=== PATIENT | female | born 1970 | race African-American/Black ===

== ENCOUNTER 2018-02-18 23:31 | Emergency (ER) | payer OTHER ==
[~2018-02-18] VITALS: Ht 165.1 cm; Wt 104.3 kg
[2018-02-18] MEDS ORDERED: NITROSTAT SL ONE (23:43)
[2018-02-18] MEDS ORDERED: TORADOL IV STA (23:45)
[2018-02-18 23:48] VITALS: BP 140/83
[2018-02-19] MEDS ORDERED: NITROSTAT SL PRN
[2018-02-19] MEDS ORDERED: TORADOL ONE (00:01)
--- NOTE | 2018-02-19 00:08 | NUR ---
LAB LAB AT BEDSIDE AT THIS TIME.
--- NOTE | 2018-02-19 00:08 | NUR ---
RAD BEN, RAD WAITING AT BEDSIDE WITH PORTABLE FOR CHEST XRAY.
--- NOTE | 2018-02-19 00:21 | NUR ---
UPDATE PT'S AT BEDSIDE NOW. PT RELAXING IN BED VISITING WITH .
--- NOTE | 2018-02-19 00:22 | DIREP ---
PROCEDURE:CHEST 1 VIEW COMPARISON:None. INDICATIONS:Chest pain FINDINGS: LUNGS/PLEURA:No significant pulmonary parenchymal abnormalities. No effusions. VASCULATURE:Normal. Unremarkable pulmonary vasculature. CARDIAC:Normal. No cardiac silhouette abnormality or cardiomegaly. MEDIASTINUM:Normal. No visible mass or adenopathy. BONES:Normal. No fracture or visible bony lesion. OTHER:EKG leads overlie the chest. CONCLUSION:No acute cardiopulmonary abnormalities. Dictated by: Matthew Tadeo M.D. on 02/19/2018 at 00:20 AM
[2018-02-19 00:28] LABS: BASOPHIL # 0.1 10^3/uL (0.0-0.1); BASOPHIL % 0.6 % (0.0-0.2); EOSINOPHIL # 0.2 10^3/uL (0.0-0.2); EOSINOPHIL % 2.8 % (0.0-5.0); HEMOGLOBIN 10.8 g/dL (12.0-15.0); LYMPHOCYTES % 37.1 % (24.0-44.0); MEAN CELL HGB 26.9 pg (26-34); MEAN CELL HGB CONCENTRATION 31.9 g/dL (33-37); MEAN CORP VOLUME 84.5 fL (78-100); MEAN PLATELET VOLUME 11.1 fL (7.8-11.0); MONOCYTES # 0.6 10^3/uL (0.3-0.8); MONOCYTES % 7.4 % (5.0-12.0); NEUTROPHIL # 4.2 10^3/uL (1.8-7.7); NEUTROPHILS % 52.1 % (41.0-85.0); RED CELL DISTRIBUTION WIDTH 14.4 % (11.5-14.5); WHITE BLOOD CELL 8.1 10^3/uL (4.5-11.0)
[2018-02-19 00:39] LABS: ALANINE AMINOTRANSFERASE(ML) 18 U/L (12-78); ALKALINE PHOSPHATASE 50 U/L (50-136); ASPARTATE AMINO TRANSFERASE 33 U/L (0-35); CALCIUM 8.3 mg/dL (8.4-10.5); CARBON DIOXIDE 29.2 mmol/L (20.0-32); GLUCOSE 95 mg/dL (70-110)
--- NOTE | 2018-02-19 00:47 | PCM.EKG ---
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
--- NOTE | 2018-02-19 00:53 | ER.PDOC ---
General Chief Complaint: Chest Pain-Cardiac Nature Stated Complaint: CHEST PAIN Time seen by MD: 23:55 Source: patient, EMS Exam Limitations: no limitations History of Present Illness Initial Comments Had CP on Wednesday, today repeated again while driving with . Gets worse with deep breath Timing/Duration: 1-3 hours Severity/Quality: severe Radiation: arms (left) Activities at Onset: none Nitro Today/Relief: 0.4 mg x 3 Aspirin Today: 325 mg x 1 Associated Symptoms: denies symptoms Allergies: Coded Allergies: morphine (Unverified Allergy, Unknown, SWELLING, WELTS, 02/18/18) Past Medical History Medical History: cardiac problems, high cholesterol, hypertension Surgical History: tubal LMP (females 10-50): this week Social History Smoking: non-smoker Alcohol Use: none Drug Use: none Constitutional: no symptoms reported EENTM: no symptoms reported Respiratory: see HPI Cardiovascular: see HPI Gastrointestinal: no symptoms reported Genitourinary: no symptoms reported Musculoskeletal: no symptoms reported Skin: no symptoms reported Psychiatric/Neurological: no symptoms reported Endocrine: no symptoms reported Hematologic/Lymphatic: no symptoms reported Physical Exam General Appearance: No Apparent Distress, WD/WN HEENT: PERRL/EOMI, Normal ENT Inspection, TMs Normal, Pharynx Normal Neck: Non-Tender, Full Range of Motion, Supple, Normal Inspection Respiratory: lungs clear, normal breath sounds, no respiratory distress, no accessory muscle use Cardiovascular: Normal Peripheral Pulses, Regular Rate, Rhythm, No Edema, No Gallop, No JVD, No Murmur Gastrointestinal: Normal Bowel Sounds, No Organomegaly, No Pulsatile Mass, Non Tender, Soft Extremities: Normal Range of Motion, Non-Tender, Normal Inspection, No Pedal Edema, No Calf Tenderness, Normal Capillary Refill 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, No Motor/Sensory Deficits, Alert, Normal Mood/Affect, Oriented x 3 Skin: Normal Color, Warm/Dry Lymphatic: No Adenopathy Results/Orders Results/Orders Laboratory Tests Test 02/18/18 23:45 White Blood Count 8.1 10^3/uL (4.5-11.0) Red Blood Count 4.01 10^6/uL (4.00-5.20) Hemoglobin 10.8 g/dL (12.0-15.0) Hematocrit 33.9 % (36.0-46.0) Mean Corpuscular Volume 84.5 fL (78-100) Mean Corpuscular Hemoglobin 26.9 pg (26-34) Mean Corpuscular Hemoglobin Concent 31.9 g/dL (33-37) Red Cell Distribution Width 14.4 % (11.5-14.5) Platelet Count 217 10^3/uL (150-400) Mean Platelet Volume 11.1 fL (7.8-11.0) Neutrophils (%) (Auto) 52.1 % (41.0-85.0) Lymphocytes (%) (Auto) 37.1 % (24.0-44.0) Monocytes (%) (Auto) 7.4 % (5.0-12.0) Neutrophils # (Auto) 4.2 10^3/uL (1.8-7.7) Lymphocytes # (Auto) 3.0 10^3/uL (1.0-4.8) Monocytes # (Auto) 0.6 10^3/uL (0.3-0.8) Absolute Immature Granulocyte (auto 0 10^3 u/L (0-2) Eosinophils % 2.8 % (0.0-5.0) Basophils % 0.6 % (0.0-0.2) Basophils # 0.1 10^3/uL (0.0-0.1) Eosinophil Count 0.2 10^3/uL (0.0-0.2) Prothrombin Time 9.6 SEC (9.8-11.9) Prothrombin Time INR (Non-Therap) 1.0 Activated Partial Thromboplast Time 24.9 SEC (24.67-30.72) D-Dimer 0.40 mg/L (0.19-0.49) Sodium Level 139 mmol/L (132-145) Potassium Level 4.1 mmol/L (3.6-5.2) Chloride Level 103.0 mmol/L (96-109) Carbon Dioxide Level 29.2 mmol/L (20.0-32) Anion Gap 10.9 Blood Urea Nitrogen 10 mg/dL (7-18) Creatinine 0.79 mg/dL (0.59-1.40) Estimated GFR () 95.2 (>/=60) BUN/Creatinine Ratio 12.0 Glucose Level 95 mg/dL (70-110) Calcium Level 8.3 mg/dL (8.4-10.5) Total Bilirubin 0.3 mg/dL (0.2-1.0) Aspartate Amino Transf (AST/SGOT) 33 U/L (0-35) Alanine Aminotransferase (ALT/SGPT) 18 U/L (12-78) Alkaline Phosphatase 50 U/L (50-136) Total Creatine Kinase 119 U/L (26-192) Creatine Kinase MB < 0.5 ng/mL (0.5-3.6) Troponin I < 0.02 ng/mL (0.00-0.05) Pro-B-Type Natriuretic Peptide 33 pg/mL (0-125) Total Protein 7.3 g/dL (6.4-8.2) Albumin 3.7 g/dL (3.4-5.0) Globulin 3.6 Percent Immature Gran (Cell Imm) 0.00 % (0.00-0.50) Administered Medications Medications (Trade) Dose Ordered Sig/Rachelle Route PRN Reason Start Time Stop Time Status Last Admin Dose Admin Nitroglycerin (Nitrostat) 0.4 mg PRN PRN SL CHEST PAIN 02/19/18 00:00 03/21/18 00:00 02/19/18 00:00 Ketorolac Tromethamine (Toradol) 30 mg STAT STAT IV 02/18/18 23:45 02/18/18 23:48 DC 02/19/18 00:07 Departure Time of Disposition: 00:50 Disposition: 01 HOME, SELF-CARE Impression: Primary Impression: Chest pain Additional Impression: Tenderness of chest wall Condition: Stable Patient Instructions: Chest Pain (Nonspecific), [id number], Chest Wall Pain, [id number] Referrals: PCP,UNKNOWN (PCP) PRIMARY CARE PROVIDER Duration or Time Spent with Pa: 15 Problem Qualifiers BABATUNDE MELENDREZ MD Feb 19, 2018 00:53
[2018-02-19 01:12] VITALS: BP 140/83
== END 2018-02-19 01:09 | disposition home or self-care (01) ==
LOC: ER 23:31 → EDBD 23:31 → ER 02-19 01:09
DX: R07.89 Other chest pain (principal); I10 Essential (primary) hypertension; E78.00 Pure hypercholesterolemia, unspecified
CPT/HCPCS: 36415; 71045; 80053; 82550; 82553; 83880; 84484; 85025; 85379; 85610; 85730; 93005; 96374; 99285; J1885